=== PATIENT | female | born 1940 | race Caucasian/White ===

== ENCOUNTER 2018-02-17 11:18 | Observation (INO) | payer MEDICARE ==
[~2018-02-17] VITALS: Ht 165.1 cm; Wt 65.1 kg
[2018-02-17] MEDS ORDERED: SODIUM CHLORIDE 0.9% 1000ML 1,000 ML IV STA (11:41)
[2018-02-17] MEDS ORDERED: MECLIZINE HCL 12.5 MG TAB PO ONE (11:45)
[2018-02-17 12:19] LABS: BASOPHILS # (AUTO) 0.1 (0.0-0.1); BASOPHILS % 0.6 % (0.0-1.0); EOSINOPHILS # (AUTO) 0.1 (0.0-0.4); HEMATOCRIT 40.5 % (34.2-44.1); HEMOGLOBIN 13.8 g/dL (12.0-16.0); LYMPHOCYTES # (AUTO) 2.7 (1.0-3.2); LYMPHOCYTES % 31.5 % (18.0-39.1); MEAN CORPUSCULAR HEMOGLOBIN 30.9 pg (28-32); MEAN CORPUSCULAR HGB CONC 34.1 g/dL (31-35); MEAN CORPUSCULAR VOLUME 90.6 fL (81-99); MONOCYTES # (AUTO) 0.8 (0.2-0.8); MONOCYTES % 8.6 % (4.4-11.3); NEUTROPHILS % 58.1 % (38.7-80.0); PLATELET COUNT 205 x10e3/uL (140-360); RED BLOOD COUNT 4.47 x10e6/uL (3.6-5.1); RED CELL DISTRIBUTION WIDTH 12.6 % (11.7-14.4)
[2018-02-17 12:25] LABS: INR 1.11; PROTHROMBIN TIME 13.5 seconds (11.9-14.5)
[2018-02-17 12:26] LABS: PARTIAL THROMBOPLASTIN TIME 27.7 seconds (23.8-35.5)
[2018-02-17 12:37] LABS: ALANINE AMINOTRANSFERASE 14 IU/L (0-55); ALBUMIN/GLOBULIN RATIO 1.2 (0.8-2.0); ALKALINE PHOSPHATASE 76 IU/L (40-150); BLOOD UREA NITROGEN 23 mg/dL (7-26); BUN/CREATININE RATIO 15 (6-25); CALCIUM 10.2 mg/dL (8.4-10.2); CARBON DIOXIDE 28 mmol/L (22-29); CHLORIDE 104 mmol/L (98-107); CREATINE KINASE 99 IU/L (29-168); CREATININE, SERUM 1.51 mg/dL (0.57-1.11); EST GLOMERULAR FILTRATION RATE 34 ML/MIN (60-); GLUCOSE 111 mg/dL (74-118); MAGNESIUM 1.8 MG/DL (1.3-2.1); SODIUM 143 mmol/L (136-145)
--- NOTE | 2018-02-17 12:45 | Diagnostic Imaging Report ---
PROCEDURE: Frontal and lateral views of the chest. COMPARISON: Patients [facility], , CHEST 2 VIEWS, 11/04/2011, 7:52. INDICATIONS: DIZZY, FINDINGS: Lines/tubes: None. Lungs: The lungs are well inflated and grossly clear. There is no evidence of pneumonia or pulmonary edema. Pleura: There is no pleural effusion or pneumothorax. Heart and mediastinum: Cardiac silhouette is unremarkable. Pulmonary vasculature is normal. Bones: No acute bony abnormality. IMPRESSION: 1. No acute cardiopulmonary abnormalities. Fredo Snyder M.D. Dictated by: Fredo Snyder M.D. on 02/17/2018 at 12:46 Electronically approved by: Fredo Snyder M.D. on 02/17/2018 at 12:46
--- NOTE | 2018-02-17 13:02 | Diagnostic Imaging Report ---
Exam: Head CT without contrast History: Dizziness, nauseated, headache Comparison studies: None Technique: Axial images were obtained from the skull base to the vertex. Coronal and sagittal images reconstructed from the axial data. Intravenous contrast: None Findings: Scalp: No abnormalities. Bones: No fractures, blastic or lytic lesions. Brain sulci: Appropriate for age. Ventricles: Normal in size and configuration. No hydrocephalus. Extra-axial spaces: No masses, no fluid collection. Parenchyma: No abnormal densities. No masses, acute hemorrhage, acute or chronic vascular insults. Sellar/suprasellar region: No abnormalities. Craniocervical junction: Patent foramen magnum. No Chiari one malformation. Incidental findings: Atherosclerotic calcifications in the carotid siphons.. IMPRESSION: No acute intracranial abnormalities. Signed by: Dr. Cameron Duarte M.D. on 02/17/2018 12:58 PM
[2018-02-17] MEDS: SODIUM CHLORIDE 0.9% 1000ML 1,000 ML IV SCH ×2 (14:40→20:49)
[2018-02-17] MEDS ORDERED: DIAZEPAM 2 MG TAB PO ONE (14:45)
[2018-02-17] MEDS ORDERED: ACETAMINOPHEN 325 MG TAB PO ONE (14:45)
[2018-02-17] MEDS ORDERED: ASPIRIN 325 MG TAB PO ONE (14:45)
[2018-02-17] MEDS: MECLIZINE HCL 12.5 MG TAB PO SCH ×2 (15:35→20:48)
--- OUTSIDE RECORDS SUMMARY | 2018-02-17 15:36 | XMS REPORT ---
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 Allergies, Adverse Reactions, Alerts This patient has no known allergies or adverse reactions. Medications This patient has no known medications. Results Test Description Test Time Test Comments Text Results Atomic Results Result Comments CHEST 2 VIEWS [place] [address] Patient Name: SHIRA ARROYO MR #: [id number] : 1940 Age/Sex: 77/F Req # : [id number] Adm Physician: Ordered by: PREMA MATTHEWS D[employer] TECHNICAL OFFICER Report #: [id number] Location: ER Room/Bed: Procedure: [id number] 0040 DX/CHEST 2 VIEWS Exam Date: 02/17/18 Exam Time : 1229 REPORT STATUS: Signed PROCEDURE: Frontal and lateral views of the chest. COMPARISON: [facility], , CHEST 2 VIEWS, 2011, 7:52. INDICATIONS: DIZZY, FINDINGS: Lines/tubes: None. Lungs: The lungs are well inflated and grossly clear. There is no evidence of pneumonia or pulmonary edema. Pleura: There is no pleural effusion or pneumothorax. Heart and mediastinum: Cardiac silhouette is unremarkable. Pulmonary vasculature is normal. Bones: No acute bony abnormality. IMPRESSION: 1. No acute cardiopulmonary abnormalities. Becca Snyder M.D. Dictated by: Becca Snyder M.D. on 02/17/2018 at 12:46 Electronically approved by: Becca Snyder M.D. on 02/17/2018 at 12:46 Dictated By: BECCA SNYDER MD [id number] Transcribed By: STUART on 02/17/18 1246 COPY TO: PREMA MATTHEWS D[employer] CONTR[employer]S TECHNICAL OFFICER CT BRAIN WO [place] [address] Patient Name: SHIRA ARROYO MR #: [id number] : 1940 Age/Sex: 77/F Req # : [id number] Adm Physician: Ordered by: PREMA MATTHEWS NP Report #: [id number] Location: ER Room/Bed: Procedure: [id number] 0023 CT/CT BRAIN WO Exam Date: 02/17/18 Exam Time: 1220 REPORT STATUS: Signed Exam: Head CT without contrast History: Dizziness, nauseated, headache Comparison studies: None Technique: Axial images were obtained from the skull base to the vertex. Coronal and sagittal images reconstructed from the axial data. Intravenous contrast: None Findings: Scalp: No abnormalities. Bones: No fractures, blastic or lytic lesions. Brain sulci: Appropriate for age. Ventricles: Normal in size and configuration. No hydrocephalus. Extra-axial spaces: No masses, no fluid collection. Parenchyma: No abnormal densities. No masses, acute hemorrhage, acute or chronic vascular insults. Sellar/suprasellar region: No abnormalities. Craniocervical junction: Patent foramen magnum. No Chiari one malformation. Incidental findings: Atherosclerotic calcifications in the carotid siphons.. IMPRESSION: No acute intracranial abnormalities. Signed by: Dr. Aleshia Duarte M.D. on 2017 12:58 PM Dictated By: ALESHIA DUARTE MD [id number] Transcribed By: ABI on 02/17/181 COPY TO: PREMA MATTHEWS NP
[2018-02-17 16:00] VITALS: BP 178/77
--- NOTE | 2018-02-17 16:10 | Diagnostic Imaging Report ---
Exam: Brain MRI without IV contrast History: Dizziness Comparison studies: Head CT performed on the same date Technique: Sagittal and axial T2, axial coronal T2 flair, axial DWI, axial T1 FLAIR and axial T2*GRE Intravenous contrast: None Findings: Scalp: Normal in signal . No masses . Bone marrow: Normal in signal intensity. Brain sulci: Appropriate for age. Ventricles: Normal in size. No hydrocephalus. Extra axial spaces: No mass, no fluid collection. Parenchyma: No mass, hemorrhage or acute ischemia. A few T2 FLAIR hyperintense foci in the supratentorial white matter are nonspecific but most compatible with chronic small vessel ischemic changes. Suprasellar region: No abnormalities. Craniocervical junction: Patent foramen magnum. No Chiari malformation . Vessels: Normal flow-voids in the arteries and dural venous sinuses. IMPRESSION: 1. No acute intracranial abnormalities. 2. Mild supratentorial chronic microvascular ischemic changes. Signed by: Dr. Cameron Duarte M.D. on 02/17/2018 4:06 PM
[2018-02-17 17:11] VITALS: BP 178/77
[2018-02-17] MEDS ORDERED: LISINOPRIL2.5 MG PO (18:09)
[2018-02-17] MEDS ORDERED: CYMBALTA30 MG PO (18:09)
[2018-02-17] MEDS ORDERED: ACETAMINOPHEN325 M1 PO (18:09)
[2018-02-17] MEDS ORDERED: PANTOPRAZOLE SO40 MG PO (18:09)
[2018-02-17] MEDS ORDERED: ASPIR 8181 MG PO (18:09)
[2018-02-17] MEDS ORDERED: mucinex PO (18:09)
[2018-02-17] MEDS ORDERED: CLONAZEPAM0.5 MG PO (19:21)
[2018-02-17] MEDS ORDERED: ATORVASTATIN CA20 MG PO (19:21)
[2018-02-17] MEDS ORDERED: VENTOLIN HFA18 GM INH (19:21)
[2018-02-17] MEDS ORDERED: BUDESONIDE0.5 MG/2 M NEB (19:22)
[2018-02-17] MEDS ORDERED: ALBUTEROL SULFATE HFA 8GM INHALATION AEROSOL INH PRN (19:30)
[2018-02-17] MEDS ORDERED: ACETAMINOPHEN 325 MG TAB PO PRN (19:30)
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
[2018-02-17 20:00] VITALS: BP 182/86
[2018-02-17] MEDS: ATORVASTATIN 20 MG TAB PO SCH (20:44)
[2018-02-17] MEDS: CLONAZEPAM 0.5 MG TAB PO SCH (20:44)
[2018-02-17] MEDS: LISINOPRIL 2.5 MG TAB PO SCH (20:44)
[2018-02-17] MEDS: CLONIDINE HCL 0.1 MG TAB PO PRN (20:45)
[2018-02-17] MEDS: PANTOPRAZOLE SOD 40 MG TABEC PO SCH (20:45)
[2018-02-17] MEDS: METHYLPREDNISOLONE SOD SUCC 125 MG/2ML VIAL IV SCH (20:48)
[2018-02-18] VITALS (7 sets, daily range): BP systolic 106–161; BP diastolic 58–84
[2018-02-18] MEDS: CLONIDINE HCL 0.1 MG TAB PO PRN (01:29)
[2018-02-18] MEDS: METHYLPREDNISOLONE SOD SUCC 125 MG/2ML VIAL IV SCH ×2 (05:31→13:14)
[2018-02-18] MEDS: MECLIZINE HCL 12.5 MG TAB PO SCH ×3 (05:31→21:07)
[2018-02-18 06:18] LABS: BASOPHILS % 0.1 % (0.0-1.0); HEMATOCRIT 37.3 % (34.2-44.1); HEMOGLOBIN 12.6 g/dL (12.0-16.0); LYMPHOCYTES # (AUTO) 1.3 (1.0-3.2); LYMPHOCYTES % 15.9 % (18.0-39.1); MEAN CORPUSCULAR HEMOGLOBIN 30.5 pg (28-32); MEAN CORPUSCULAR HGB CONC 33.8 g/dL (31-35); MEAN CORPUSCULAR VOLUME 90.3 fL (81-99); MONOCYTES # (AUTO) 0.1 (0.2-0.8); NEUTROPHILS % 82.8 % (38.7-80.0); PLATELET COUNT 205 x10e3/uL (140-360); RED BLOOD COUNT 4.13 x10e6/uL (3.6-5.1); RED CELL DISTRIBUTION WIDTH 12.3 % (11.7-14.4)
[2018-02-18 06:32] LABS: ANION GAP 12.3 mmol/L (8-16); CALCIUM 9.5 mg/dL (8.4-10.2); CREATININE, SERUM 1.1 mg/dL (0.57-1.11); POTASSIUM 4.3 mmol/L (3.5-5.1)
[2018-02-18] MEDS ORDERED: BUDESONIDE 0.5MG/2 ML NEB NEB SCH (07:00)
[2018-02-18] MEDS: DULOXETINE HCL 30 MG DELAYED RELEASE PO SCH (08:48)
[2018-02-18] MEDS: ASPIRIN 81 MG CHEW TAB PO SCH (08:48)
[2018-02-18] MEDS: GUAIFENESIN 600 MG TAB PO SCH (08:48)
[2018-02-18] MEDS ORDERED: MUCINEX PO SCH (09:00)
[2018-02-18] MEDS: SODIUM CHLORIDE 0.9% 1000ML 1,000 ML IV SCH (14:00)
[2018-02-18] MEDS: LISINOPRIL 2.5 MG TAB PO SCH (21:07)
[2018-02-18] MEDS: PANTOPRAZOLE SOD 40 MG TABEC PO SCH (21:07)
[2018-02-18] MEDS: ATORVASTATIN 20 MG TAB PO SCH (21:07)
[2018-02-18] MEDS: CLONAZEPAM 0.5 MG TAB PO SCH (21:07)
[2018-02-19] VITALS: BP 106/59
[2018-02-19 04:00] VITALS: BP 144/71
[2018-02-19] MEDS: MECLIZINE HCL 12.5 MG TAB PO SCH (05:06)
[2018-02-19 08:05] VITALS: BP 133/69
[2018-02-19] MEDS: SODIUM CHLORIDE 0.9% 1000ML 1,000 ML IV SCH (08:35)
[2018-02-19] MEDS: DULOXETINE HCL 30 MG DELAYED RELEASE PO SCH (08:46)
[2018-02-19] MEDS: GUAIFENESIN 600 MG TAB PO SCH (08:46)
[2018-02-19] MEDS: ASPIRIN 81 MG CHEW TAB PO SCH (08:46)
== END 2018-02-19 09:59 | disposition home or self-care (01) ==
LOC: ER 11:18 → IMCU 15:34
PROVIDERS: ADMIT Family Medicine; ATTEND Family Medicine
CPT/HCPCS: 36415; 70450; 70551; 71046; 80048; 80053; 82550; 82553; 83735; 84100; 84484; 85025; 85610; 85730; 93005; 99284; G0378; J2930; J7030

== ENCOUNTER 2018-11-23 17:20 | Emergency (ER) | payer MEDICARE ==
[~2018-11-23] VITALS: Ht 165.1 cm; Wt 65.3 kg
[~2018-11-23 17:20] MED LIST: ACETAMINOPHEN325 M1 PO; ASPIR 8181 MG PO; ATORVASTATIN CA20 MG PO; BUDESONIDE0.5 MG/2 M NEB; CLONAZEPAM0.5 MG PO; CYMBALTA30 MG PO; LISINOPRIL2.5 MG PO; PANTOPRAZOLE SO40 MG PO; VENTOLIN HFA18 GM INH; mucinex PO
[2018-11-23] MEDS ORDERED: HYDROCODONE/APAP 5MG-325MG TAB PO ONE (18:15)
--- NOTE | 2018-11-23 18:43 | Diagnostic Imaging Report ---
PELVIS AP 1-2 VIEWS - 2 views HISTORY: Pain. Fell in the shower. It right ribs. COMPARISON: None available. FINDINGS: Bones: No acute displaced fracture. Osseous alignment is within normal limits. Joints: The joint spaces are well-maintained. Degenerative changes in the lower lumbar spine. Soft tissues: The soft tissues appear unremarkable. IMPRESSION: No acute radiographic abnormality. Signed by: Dr. Lei Garrett M.D. on 11/23/2018 6:40 PM
--- NOTE | 2018-11-23 18:46 | Diagnostic Imaging Report ---
EXAMINATION: RIBS BILAT W/CXR INDICATION: ^RIB PAIN COMPARISON: Chest x-ray 02/17/2018. 11/04/2011. FINDINGS: TUBES and LINES: None. LUNGS: Lungs are well inflated. There are bibasilar atelectasis. There is no evidence of pneumonia or pulmonary edema. PLEURA: No pleural effusion or pneumothorax. HEART AND MEDIASTINUM: The cardiomediastinal silhouette is unremarkable. BONES AND SOFT TISSUES: Nondisplaced acute fracture of the right lateral 10th rib. Soft tissues are unremarkable. UPPER ABDOMEN: No free air under the diaphragm. IMPRESSION: 1. Nondisplaced acute fracture of the right lateral 10th rib. 2. No pneumothorax. Signed by: Dr. Lei Garrett M.D. on 11/23/2018 6:43 PM
[2018-11-23] MEDS ORDERED: TRAMADOL HCL 50 MG TAB PO ONE (20:00)
[2018-11-23 20:05] VITALS: BP 167/71
== END 2018-11-23 20:30 | disposition home or self-care (01) ==
LOC: ER 17:20
DX: S22.31XA Fracture of one rib, right side, initial encounter for closed fracture (principal); S20.211A Contusion of right front wall of thorax, initial encounter; W18.2XXA Fall in (into) shower or empty bathtub, initial encounter; Y93.E1 Activity, personal bathing and showering; Y92.002 Bathroom of unspecified non-institutional (private) residence as the place of occurrence of the external cause; I10 Essential (primary) hypertension; E78.5 Hyperlipidemia, unspecified; M79.7 Fibromyalgia; K21.9 Gastro-esophageal reflux disease without esophagitis; F41.9 Anxiety disorder, unspecified
CPT/HCPCS: 71111; 72170; 99283

== ENCOUNTER 2020-10-27 13:01 | Emergency (ER) | payer MEDICARE ==
[~2020-10-27] VITALS: Ht 165.1 cm; Wt 65.3 kg
[2020-10-27] MEDS ORDERED: SODIUM CHLORIDE 0.9% 1000ML 1,000 ML IV STA (13:28)
[2020-10-27 14:05] LABS: BASOPHILS % 0.7 % (0.0-1.0); EOSINOPHILS # (AUTO) 0.2 (0.0-0.4); EOSINOPHILS % 3.3 % (0.0-6.0); HEMATOCRIT 34.4 % (34.2-44.1); HEMOGLOBIN 10.8 g/dL (12.0-16.0); LYMPHOCYTES # (AUTO) 1.9 (1.0-3.2); LYMPHOCYTES % 31.9 % (18.0-39.1); MEAN CORPUSCULAR HEMOGLOBIN 29.3 pg (28-32); MEAN CORPUSCULAR HGB CONC 31.4 g/dL (31-35); MEAN CORPUSCULAR VOLUME 93.5 fL (81-99); MONOCYTES # (AUTO) 0.7 (0.2-0.8); MONOCYTES % 12.5 % (4.4-11.3); NEUTROPHILS % 50.7 % (38.7-80.0); PLATELET COUNT 250 x10e3/uL (140-360); RED BLOOD COUNT 3.68 x10e6/uL (3.6-5.1)
[2020-10-27 14:24] LABS: ALBUMIN 3.2 g/dL (3.5-5.0); ALBUMIN/GLOBULIN RATIO 0.9 (0.8-2.0); ANION GAP 19.8 mmol/L (8-16); CALCIUM 9.3 mg/dL (8.4-10.2); CREATININE, SERUM 1.53 mg/dL (0.57-1.11); POTASSIUM 3.8 mmol/L (3.5-5.1)
[2020-10-27 14:30] LABS: CREATINE KINASE MB 1.7 ng/mL (0-5.0)
== END 2020-10-27 17:18 | disposition home or self-care (01) ==
LOC: ER 13:42
DX: R06.00 Dyspnea, unspecified (principal); R53.81 Other malaise; E78.5 Hyperlipidemia, unspecified; I10 Essential (primary) hypertension; M79.7 Fibromyalgia; F41.9 Anxiety disorder, unspecified; M54.9 Dorsalgia, unspecified; G89.29 Other chronic pain; J44.9 Chronic obstructive pulmonary disease, unspecified
CPT/HCPCS: 36415; 71045; 80053; 82550; 82553; 84484; 85025; 93005; 99284; J7030

== ENCOUNTER → 2021-04-22 | Day surgery (SDC) | payer MEDICARE, OTHER ==
[2021-04-17 08:35] LABS: BASOPHILS # (AUTO) 0.1 (0.0-0.1); BASOPHILS % 0.8 % (0.0-1.0); EOSINOPHILS # (AUTO) 0.2 (0.0-0.4); EOSINOPHILS % 1.9 % (0.0-6.0); HEMATOCRIT 41.1 % (34.2-44.1); HEMOGLOBIN 12.9 g/dL (12.0-16.0); LYMPHOCYTES # (AUTO) 2.4 (1.0-3.2); MEAN CORPUSCULAR HEMOGLOBIN 28.5 pg (28-32); MEAN CORPUSCULAR HGB CONC 31.4 g/dL (31-35); MEAN CORPUSCULAR VOLUME 90.7 fL (81-99); MONOCYTES # (AUTO) 0.9 (0.2-0.8); MONOCYTES % 9.6 % (4.4-11.3); NEUTROPHILS # (AUTO) 5.4 (2.1-6.9); NEUTROPHILS % 60.4 % (38.7-80.0); PLATELET COUNT 264 x10e3/uL (140-360); RED BLOOD COUNT 4.53 x10e6/uL (3.6-5.1); RED CELL DISTRIBUTION WIDTH 14.8 % (11.7-14.4)
[~2021-04-22] MED LIST changes: +GABAPENTIN300 MG PO; +MAGNESIUM OXID400 MG PO; +MIDAZOLAM HCL 2 MG/2 ML VIAL ONE; +POVIDONE IODINE 0.05% 0.05 % ML PO ONE; +PROPOFOL IV EMULSION 10 MG/ML 20 ML VIAL ONE; +ROPINIROLE HC0.25 MG PO; +SIMETHICONE 40 MG/0.6 ML BTL ONE; +TRELEGY ELLIPT1 EACH INH; +ZETIA10 MG PO
[2021-04-22 12:10] VITALS: BP 149/98
== END | disposition home or self-care (01) ==
LOC: OR 09:14
PROVIDERS: ATTEND Internal Medicine Gastroenterology
DX: Z12.11 Encounter for screening for malignant neoplasm of colon (principal); D12.3 Benign neoplasm of transverse colon; K31.7 Polyp of stomach and duodenum; K29.00 Acute gastritis without bleeding; R13.10 Dysphagia, unspecified; K44.9 Diaphragmatic hernia without obstruction or gangrene; K21.9 Gastro-esophageal reflux disease without esophagitis; K57.30 Diverticulosis of large intestine without perforation or abscess without bleeding; K64.8 Other hemorrhoids; Z71.3 Dietary counseling and surveillance; I10 Essential (primary) hypertension; E66.3 Overweight; J44.9 Chronic obstructive pulmonary disease, unspecified; I49.1 Atrial premature depolarization; M06.9 Rheumatoid arthritis, unspecified; E78.5 Hyperlipidemia, unspecified; I35.8 Other nonrheumatic aortic valve disorders; Z88.6 Allergy status to analgesic agent; Z01.810 Encounter for preprocedural cardiovascular examination; Z01.812 Encounter for preprocedural laboratory examination; Z99.81 Dependence on supplemental oxygen; Z68.25 Body mass index [BMI] 25.0-25.9, adult; Z87.891 Personal history of nicotine dependence
CPT/HCPCS: 36415; 43239; 45378; 85025; 88305; 88312; 93005; J2250

== ENCOUNTER → 2022-07-01 | Day surgery (SDC) | payer OTHER ==
[2022-06-28 10:01] LABS: BASOPHILS # (AUTO) 0.1 (0.0-0.1); BASOPHILS % 0.7 % (0.0-1.0); EOSINOPHILS # (AUTO) 0.1 (0.0-0.4); EOSINOPHILS % 0.8 % (0.0-6.0); HEMATOCRIT 40.9 % (34.2-44.1); HEMOGLOBIN 13.3 g/dL (12.0-16.0); LYMPHOCYTES # (AUTO) 2.7 (1.0-3.2); LYMPHOCYTES % 25.4 % (18.0-39.1); MEAN CORPUSCULAR HEMOGLOBIN 29.6 pg (28-32); MEAN CORPUSCULAR HGB CONC 32.5 g/dL (31-35); MEAN CORPUSCULAR VOLUME 90.9 fL (81-99); MONOCYTES # (AUTO) 1.3 (0.2-0.8); MONOCYTES % 11.9 % (4.4-11.3); NEUTROPHILS # (AUTO) 6.5 (2.1-6.9); NEUTROPHILS % 60.5 % (38.7-80.0); PLATELET COUNT 238 x10e3/uL (140-360); RED CELL DISTRIBUTION WIDTH 14.1 % (11.7-14.4)
[2022-06-28 10:13] LABS: INR 1.02; PROTHROMBIN TIME 14.3 seconds (11.9-14.5)
[2022-06-28 10:23] LABS: ALANINE AMINOTRANSFERASE 14 IU/L (0-55); ALBUMIN 3.7 g/dL (3.5-5.0); ALBUMIN/GLOBULIN RATIO 1.1 (0.8-2.0); ALKALINE PHOSPHATASE 54 IU/L (40-150); ANION GAP 15.5 mmol/L (8-16); BLOOD UREA NITROGEN 28 mg/dL (7-26); BUN/CREATININE RATIO 22 (6-25); CALCIUM 9.6 mg/dL (8.4-10.2); CARBON DIOXIDE 29 mmol/L (22-29); CHLORIDE 99 mmol/L (98-107); CHOL/HDL RATIO 5.3 (3.0-3.6); CHOLESTEROL 196 MD/DL (0-199); CREATININE, SERUM 1.27 mg/dL (0.57-1.11); GLUCOSE 90 mg/dL (74-118); HDL CHOLESTEROL 37 MG/DL (40-60); LDL CHOLESTEROL 110 MG/DL (60-130); POTASSIUM 4.5 mmol/L (3.5-5.1); SODIUM 139 mmol/L (136-145); TRIGLYCERIDES 245 MG/DL (0-149)
[~2022-07-01] VITALS: Ht 165.1 cm; Wt 70.3 kg
[2022-07-01] VITALS (26 sets, daily range): BP systolic 128–188; BP diastolic 65–87
[~2022-07-01] MED LIST changes: +FENTANYL CITRATE/PF 100MCG/2 ML INJ ONE; +HEPARIN SOD (PORCINE) 1000 UNIT/ML 30ML ONE; +HEPARIN SOD/SOD CHLORIDE 2,000 ML ONE; +IOPAMIDOL 370 MG/ML 100 ML INFUS..BTL INJ ONE; +LIDOCAINE 1% 10 ML MULTIDOSE VIAL IJ ONE; +NITROGLYCERIN/D5W 200 MCG/ML 250 ML ONE; -POVIDONE IODINE 0.05% 0.05 % ML PO ONE; -PROPOFOL IV EMULSION 10 MG/ML 20 ML VIAL ONE; -SIMETHICONE 40 MG/0.6 ML BTL ONE; +SODIUM CHLORIDE 0.9% 1000ML 1,000 ML ONE; +VERAPAMIL HCL 2.5 MG/ML 2 ML VIAL ONE; +ZESTRIL10 MG PO
== END | disposition home or self-care (01) ==
LOC: CATH LAB 09:29
PROVIDERS: ATTEND Internal Medicine Cardiovascular Disease
DX: I25.10 Atherosclerotic heart disease of native coronary artery without angina pectoris (principal); I10 Essential (primary) hypertension; E78.5 Hyperlipidemia, unspecified; I35.1 Nonrheumatic aortic (valve) insufficiency; Z20.822 Contact with and (suspected) exposure to COVID-19; Z88.6 Allergy status to analgesic agent; Z88.5 Allergy status to narcotic agent
CPT/HCPCS: 0223U; 36415; 80053; 80061; 85025; 85610; 93458; 99152; C1887; J1644; J2250; J3010; J7030; Q9967

== ENCOUNTER 2022-11-16 16:29 | Emergency (ER) | payer MEDICARE, OTHER ==
[~2022-11-16] VITALS: Ht 165.1 cm; Wt 70.3 kg
[~2022-11-16 16:29] MED LIST changes: -FENTANYL CITRATE/PF 100MCG/2 ML INJ ONE; -HEPARIN SOD (PORCINE) 1000 UNIT/ML 30ML ONE; -HEPARIN SOD/SOD CHLORIDE 2,000 ML ONE; -IOPAMIDOL 370 MG/ML 100 ML INFUS..BTL INJ ONE; -LIDOCAINE 1% 10 ML MULTIDOSE VIAL IJ ONE; -MIDAZOLAM HCL 2 MG/2 ML VIAL ONE; -NITROGLYCERIN/D5W 200 MCG/ML 250 ML ONE; -SODIUM CHLORIDE 0.9% 1000ML 1,000 ML ONE; -VERAPAMIL HCL 2.5 MG/ML 2 ML VIAL ONE
[2022-11-16 17:01] LABS: BASOPHILS % 0.1 % (0.0-1.0); HEMATOCRIT 35.2 % (34.2-44.1); HEMOGLOBIN 11.5 g/dL (12.0-16.0); LYMPHOCYTES % 17.8 % (18.0-39.1); MEAN CORPUSCULAR HEMOGLOBIN 30.9 pg (28-32); MEAN CORPUSCULAR HGB CONC 32.7 g/dL (31-35); MEAN CORPUSCULAR VOLUME 94.6 fL (81-99); MONOCYTES # (AUTO) 0.9 (0.2-0.8); MONOCYTES % 8.2 % (4.4-11.3); NEUTROPHILS % 73.1 % (38.7-80.0); PLATELET COUNT 255 x10e3/uL (140-360); RED BLOOD COUNT 3.72 x10e6/uL (3.6-5.1); RED CELL DISTRIBUTION WIDTH 14.6 % (11.7-14.4)
[2022-11-16 17:18] LABS: ALBUMIN 3.6 g/dL (3.5-5.0); ALBUMIN/GLOBULIN RATIO 1.2 (0.8-2.0); ANION GAP 13.4 mmol/L (8-16); CREATININE, SERUM 1.06 mg/dL (0.57-1.11); POTASSIUM 3.4 mmol/L (3.5-5.1)
[2022-11-16] MEDS ORDERED: FUROSEMIDE INJ 10 MG/ML 4 ML VIAL IV ONE (17:30)
[2022-11-16] MEDS ORDERED: LASIX20 MG PO (17:40)
== END 2022-11-16 19:45 | disposition home or self-care (01) ==
LOC: ER 16:42
DX: R60.9 Edema, unspecified (principal); R06.02 Shortness of breath; R50.9 Fever, unspecified; I10 Essential (primary) hypertension; J44.9 Chronic obstructive pulmonary disease, unspecified; E78.5 Hyperlipidemia, unspecified; K21.9 Gastro-esophageal reflux disease without esophagitis; F41.9 Anxiety disorder, unspecified; M79.7 Fibromyalgia; M54.9 Dorsalgia, unspecified; G89.29 Other chronic pain
CPT/HCPCS: 36415; 71045; 80053; 83880; 84484; 85025; 93005; 99284; J1940